=== PATIENT | male | born 1970 | race Caucasian/White ===

== ENCOUNTER 2021-03-09 11:14 | Inpatient (IN) | payer OTHER ==
[2021-03-09 11:49] VITALS: BMI 28.7
[2021-03-09] MEDS ORDERED: ONDANSETRON *ODT* 4 MG TABLET SL PRN (12:15)
[2021-03-09] MEDS ORDERED: METHOCARBAMOL 500 MG TABLET PO PRN (12:15)
[2021-03-09] MEDS ORDERED: MENTHOL/PHENOL 1 EACH UD MM PRN (12:15)
[2021-03-09] MEDS ORDERED: NICOTINE POLACRILEX 2 MG GUM BUC PRN (12:15)
[2021-03-09] MEDS ORDERED: BISMUTH SUBSALICYLATE 262 MG/15 ML BTL PO PRN (12:15)
[2021-03-09] MEDS ORDERED: MAGNESIUM CITRATE 300 ML BOTTLE PO PRN (12:15)
[2021-03-09] MEDS ORDERED: chlordiazePOXIDE HCL 25 MG CAPSULE PO PRN (12:15)
[2021-03-09] MEDS ORDERED: MAGNESIUM HYDROX 2400MG/30ML ORAL SUSPENSION 30 ML CUP PO PRN (12:15)
[2021-03-09] MEDS ORDERED: ACETAMINOPHEN 325 MG TABLET (FP) PO PRN ×2 (12:15)
[2021-03-09] MEDS ORDERED: chlordiazePOXIDE HCL 25 MG CAPSULE ONE (12:21)
[2021-03-09] MEDS: chlordiazePOXIDE HCL 25 MG CAPSULE PO SCH ×3 (12:28→22:57)
[2021-03-09 14:26] LABS: HEMATOCRIT 47.8 % (35.4-49); HEMOGLOBIN 16.3 GM/dL (11.7-16.9); MCH 30.5 pg (25.7-33.7); MEAN CELL VOLUME 89.7 fl (80-96); MEAN PLT VOLUME 7.5 fl (7.5-11.1); PLATELET COUNT 247 K/MM3 (134-434); RBC 5.33 M/mm3 (4.00-5.60); RDW 13.2 % (11.9-15.9); WHITE BLOOD COUNT 7.7 K/mm3 (4.0-10.0)
[2021-03-09] MEDS: hydrOXYzine PAMOATE 25 MG CAPSULE (FP) PO SCH ×3 (14:43→22:57)
[2021-03-09] MEDS: PRENATAL VITAMINS W/ FOLIC ACID TABLET (FP) PO SCH (14:44)
[2021-03-09 14:47] LABS: CALCIUM 9.2 mg/dL (8.5-10.1)
[2021-03-09 14:48] LABS: ALBUMIN 4.4 g/dl (3.4-5.0); BLOOD UREA NITROGEN 7.9 mg/dL (7-18)
[2021-03-09 14:51] LABS: CREATININE 0.8 mg/dL (0.55-1.3)
[2021-03-09 14:54] LABS: BILIRUBIN,TOTAL 0.4 mg/dL (0.2-1); TOT PROT 8.1 g/dl (6.4-8.2)
[2021-03-09] MEDS: MAG HYDROX/AL HYDROX/SIMETH 30 ML UNIT-DOSE CUP PO PRN (18:13)
[2021-03-09] MEDS: MELATONIN 5 MG TABLETS PO SCH (22:57)
[2021-03-09] MEDS: THIAMINE HCL 100 MG TABLET (FP) PO SCH (22:57)
[2021-03-10] MEDS: chlordiazePOXIDE HCL 25 MG CAPSULE PO SCH ×4 (06:30→23:13)
[2021-03-10] MEDS: hydrOXYzine PAMOATE 25 MG CAPSULE (FP) PO SCH ×5 (06:30→23:13)
[2021-03-10] MEDS: PRENATAL VITAMINS W/ FOLIC ACID TABLET (FP) PO SCH (10:57)
[2021-03-10] MEDS: ATOMOXETINE HCL 25 MG CAPSULE PO SCH (15:09)
[2021-03-10] MEDS: FLUoxetine HCL 20 MG CAPSULE PO SCH (15:09)
[2021-03-10] MEDS: MELATONIN 5 MG TABLETS PO SCH (23:12)
[2021-03-10] MEDS: THIAMINE HCL 100 MG TABLET (FP) PO SCH (23:12)
[2021-03-10] MEDS: MAG HYDROX/AL HYDROX/SIMETH 30 ML UNIT-DOSE CUP PO PRN (23:17)
[2021-03-11] MEDS ORDERED: chlordiazePOXIDE HCL 25 MG CAPSULE PO SCH (05:00)
[2021-03-11] MEDS: hydrOXYzine PAMOATE 25 MG CAPSULE (FP) PO SCH ×5 (06:43→22:02)
[2021-03-11] MEDS ORDERED: chlordiazePOXIDE 5 MG CAPSULE ONE ×3 (09:44→21:17)
[2021-03-11] MEDS ORDERED: chlordiazePOXIDE HCL 10 MG CAPSULE ONE ×3 (09:44→21:16)
[2021-03-11] MEDS: PRENATAL VITAMINS W/ FOLIC ACID TABLET (FP) PO SCH (10:34)
[2021-03-11] MEDS: FLUoxetine HCL 20 MG CAPSULE PO SCH (10:34)
[2021-03-11] MEDS: CHLORDIAZEPOXIDE 20 MG, CHLORDIAZEPOXIDE 5 MG PO SCH ×3 (10:35→22:00)
[2021-03-11] MEDS: ATOMOXETINE HCL 25 MG CAPSULE PO SCH (10:35)
[2021-03-11] MEDS: OXYBUTYNIN CHLORIDE 5 MG TABLET PO SCH (12:04)
[2021-03-11] MEDS: HYDROCORTISONE 1% TOPICAL CREAM 30 GM TUBE TP SCH ×2 (15:00→22:04)
[2021-03-11] MEDS: MELATONIN 5 MG TABLETS PO SCH (22:01)
[2021-03-11] MEDS: THIAMINE HCL 100 MG TABLET (FP) PO SCH (22:02)
[2021-03-12] MEDS ORDERED: chlordiazePOXIDE HCL 10 MG CAPSULE PO PRN
[2021-03-12] MEDS: MAG HYDROX/AL HYDROX/SIMETH 30 ML UNIT-DOSE CUP PO PRN (00:30)
[2021-03-12] MEDS: hydrOXYzine PAMOATE 25 MG CAPSULE (FP) PO SCH ×5 (07:36→22:11)
[2021-03-12] MEDS: chlordiazePOXIDE HCL 10 MG CAPSULE PO SCH ×4 (07:36→22:11)
[2021-03-12] MEDS: PRENATAL VITAMINS W/ FOLIC ACID TABLET (FP) PO SCH (10:27)
[2021-03-12] MEDS: FLUoxetine HCL 20 MG CAPSULE PO SCH (10:27)
[2021-03-12] MEDS: OXYBUTYNIN CHLORIDE 5 MG TABLET PO SCH (10:27)
[2021-03-12] MEDS: ATOMOXETINE HCL 25 MG CAPSULE PO SCH (10:29)
[2021-03-12] MEDS: IBUPROFEN 400 MG TABLET (FP) PO PRN ×2 (12:05→20:08)
[2021-03-12] MEDS: HYDROCORTISONE 1% TOPICAL CREAM 30 GM TUBE TP SCH ×2 (15:26→22:12)
[2021-03-12] MEDS: THIAMINE HCL 100 MG TABLET (FP) PO SCH (22:11)
[2021-03-12] MEDS: MELATONIN 5 MG TABLETS PO SCH (22:11)
[2021-03-13] MEDS: MAG HYDROX/AL HYDROX/SIMETH 30 ML UNIT-DOSE CUP PO PRN ×2 (02:27→22:24)
[2021-03-13] MEDS: chlordiazePOXIDE HCL 10 MG CAPSULE PO SCH ×2 (05:27→18:13)
[2021-03-13] MEDS: hydrOXYzine PAMOATE 25 MG CAPSULE (FP) PO SCH ×5 (05:27→22:24)
[2021-03-13] MEDS: ATOMOXETINE HCL 25 MG CAPSULE PO SCH (09:12)
[2021-03-13] MEDS: FLUoxetine HCL 20 MG CAPSULE PO SCH (09:12)
[2021-03-13] MEDS: PRENATAL VITAMINS W/ FOLIC ACID TABLET (FP) PO SCH (09:12)
[2021-03-13] MEDS: OXYBUTYNIN CHLORIDE 5 MG TABLET PO SCH (09:12)
[2021-03-13] MEDS: HYDROCORTISONE 1% TOPICAL CREAM 30 GM TUBE TP SCH ×2 (09:13→22:35)
[2021-03-13] MEDS ORDERED: OXYBUTYNIN CHLORIDE 5 MG TABLET PO SCH (11:45)
[2021-03-13] MEDS: THIAMINE HCL 100 MG TABLET (FP) PO SCH (22:24)
[2021-03-13] MEDS: MELATONIN 5 MG TABLETS PO SCH (22:24)
[2021-03-14] MEDS ORDERED: chlordiazePOXIDE HCL 10 MG CAPSULE PO ONE (05:00)
[2021-03-14] MEDS: hydrOXYzine PAMOATE 25 MG CAPSULE (FP) PO SCH ×2 (05:49→10:25)
[2021-03-14 09:11] VITALS: BP 124/88; PULSE 84; TEMP 97.5
[2021-03-14] MEDS ORDERED: OXYBUTYNIN CHLORIDE 5 MG TABLET PO SCH (10:00)
[2021-03-14] MEDS: FLUoxetine HCL 20 MG CAPSULE PO SCH (10:25)
[2021-03-14] MEDS: HYDROCORTISONE 1% TOPICAL CREAM 30 GM TUBE TP SCH (10:25)
[2021-03-14] MEDS: PRENATAL VITAMINS W/ FOLIC ACID TABLET (FP) PO SCH (10:25)
[2021-03-14] MEDS: ATOMOXETINE HCL 25 MG CAPSULE PO SCH (10:25)
== END 2021-03-14 11:19 | disposition other institution (70) | DRG 774 ==
LOC: YASAS 11:14 → Y3N 13:05
PROVIDERS: ADMIT Allergy & Immunology; ATTEND Allergy & Immunology
PROC: HZ2ZZZZ Detoxification Services for Substance Abuse Treatment (ICD-10-PCS; principal; 2021-03-09)
DX: F10.230 Alcohol dependence with withdrawal, uncomplicated (principal); F14.20 Cocaine dependence, uncomplicated; F17.210 Nicotine dependence, cigarettes, uncomplicated; F31.9 Bipolar disorder, unspecified; F19.24 Other psychoactive substance dependence with psychoactive substance-induced mood disorder; F39 Unspecified mood [affective] disorder; F60.9 Personality disorder, unspecified; F41.9 Anxiety disorder, unspecified; F90.9 Attention-deficit hyperactivity disorder, unspecified type; F43.10 Post-traumatic stress disorder, unspecified; I10 Essential (primary) hypertension; L30.9 Dermatitis, unspecified; M19.90 Unspecified osteoarthritis, unspecified site; N32.81 Overactive bladder; N39.43 Post-void dribbling; Z62.810 Personal history of physical and sexual abuse in childhood
CPT/HCPCS: 36415; 80053; 85027; 86780; 93005; 93010; C9803; U0003; U0005

== ENCOUNTER 2021-03-14 11:09 | Inpatient (IN) | payer OTHER ==
[2021-03-14] MEDS ORDERED: LOPERAMIDE HCL 2 MG CAPSULE PO PRN (13:07)
[2021-03-14] MEDS ORDERED: guaiFENesin 200 MG/10 ML 10 ML UNIT-DOSE CUPS PO PRN (13:07)
[2021-03-14] MEDS ORDERED: NICOTINE POLACRILEX 2 MG GUM BUC PRN (13:07)
[2021-03-14] MEDS ORDERED: ACETAMINOPHEN 325 MG TABLET (FP) PO PRN (13:07)
[2021-03-14] MEDS ORDERED: MAGNESIUM CITRATE 300 ML BOTTLE PO PRN (13:07)
[2021-03-14] MEDS ORDERED: P-EPHED 60MG/TRIPROLIDI 2.5MG TABLET PO PRN (13:07)
[2021-03-14] MEDS ORDERED: MAGNESIUM HYDROX 2400MG/30ML ORAL SUSPENSION 30 ML CUP PO PRN (13:07)
[2021-03-14] MEDS ORDERED: MENTHOL/PHENOL 1 EACH UD MM PRN (13:07)
[2021-03-14] MEDS ORDERED: hydrOXYzine PAMOATE 25 MG CAPSULE (FP) PO PRN (13:07)
[2021-03-14] MEDS: IBUPROFEN 400 MG TABLET (FP) PO PRN (13:41)
[2021-03-14] MEDS ORDERED: OXYBUTYNIN CHLORIDE 5 MG TABLET PO SCH (14:00)
[2021-03-14] MEDS: METHOCARBAMOL 500 MG TABLET PO SCH ×3 (14:53→21:44)
[2021-03-14] MEDS: KETOCONAZOLE 2% CREAM - 60GM TUBE TP SCH (14:53)
[2021-03-14] MEDS ORDERED: PT OWN MED DRAWER 7, Y5N ONE (15:00)
[2021-03-14] MEDS: MAG HYDROX/AL HYDROX/SIMETH 30 ML UNIT-DOSE CUP PO PRN (21:43)
[2021-03-14] MEDS: MELATONIN 5 MG TABLETS PO SCH (21:44)
[2021-03-14] MEDS: OXYBUTYNIN CHLORIDE 5 MG TABLET PO SCH (21:44)
[2021-03-14] MEDS: THIAMINE HCL 100 MG TABLET (FP) PO SCH (21:45)
[2021-03-15] MEDS: NICOTINE 7 MG/24 HOURS TOPICAL PATCH TD SCH (09:57)
[2021-03-15] MEDS: METHOCARBAMOL 500 MG TABLET PO SCH ×4 (09:58→21:25)
[2021-03-15] MEDS: FLUoxetine HCL 20 MG CAPSULE PO SCH (09:58)
[2021-03-15] MEDS: LISINOPRIL 5 MG TABLET PO SCH (09:58)
[2021-03-15] MEDS ORDERED: ATOMOXETINE HCL 25 MG CAPSULE PO SCH (10:00)
[2021-03-15] MEDS: FOLIC ACID 1 MG TABLET (FP) PO SCH (10:00)
[2021-03-15] MEDS: PRENATAL VITAMINS W/ FOLIC ACID TABLET (FP) PO SCH (10:00)
[2021-03-15] MEDS: OXYBUTYNIN CHLORIDE 5 MG TABLET PO SCH ×2 (10:00→21:24)
[2021-03-15] MEDS: KETOCONAZOLE 2% CREAM - 60GM TUBE TP SCH (10:03)
[2021-03-15 10:59] LABS: HIV INTERPRETATION NEGATIVE (NEGATIVE)
[2021-03-15] MEDS ORDERED: PT OWN MED DRAWER 7, Y5N ONE ×2 (11:05→13:50)
[2021-03-15] MEDS: THIAMINE HCL 100 MG TABLET (FP) PO SCH (21:24)
[2021-03-15] MEDS: MELATONIN 5 MG TABLETS PO SCH (21:24)
[2021-03-16] MEDS: MAG HYDROX/AL HYDROX/SIMETH 30 ML UNIT-DOSE CUP PO PRN ×3 (03:07→23:28)
[2021-03-16] MEDS: METHOCARBAMOL 500 MG TABLET PO SCH ×4 (09:59→21:35)
[2021-03-16] MEDS: ATOMOXETINE HCL 40 MG CAPSULE PO SCH (09:59)
[2021-03-16] MEDS: FOLIC ACID 1 MG TABLET (FP) PO SCH (09:59)
[2021-03-16] MEDS: FLUoxetine HCL 20 MG CAPSULE PO SCH (09:59)
[2021-03-16] MEDS: PRENATAL VITAMINS W/ FOLIC ACID TABLET (FP) PO SCH (09:59)
[2021-03-16] MEDS: LISINOPRIL 5 MG TABLET PO SCH (09:59)
[2021-03-16] MEDS: KETOCONAZOLE 2% CREAM - 60GM TUBE TP SCH (10:00)
[2021-03-16] MEDS: NICOTINE 7 MG/24 HOURS TOPICAL PATCH TD SCH (10:00)
[2021-03-16] MEDS: OXYBUTYNIN CHLORIDE 5 MG TABLET PO SCH ×2 (10:01→21:35)
[2021-03-16] MEDS: MELATONIN 5 MG TABLETS PO SCH (21:34)
[2021-03-16] MEDS: THIAMINE HCL 100 MG TABLET (FP) PO SCH (21:34)
[2021-03-17] MEDS: METHOCARBAMOL 500 MG TABLET PO SCH ×4 (09:46→21:18)
[2021-03-17] MEDS: PRENATAL VITAMINS W/ FOLIC ACID TABLET (FP) PO SCH (09:46)
[2021-03-17] MEDS: LISINOPRIL 5 MG TABLET PO SCH (09:46)
[2021-03-17] MEDS: KETOCONAZOLE 2% CREAM - 60GM TUBE TP SCH (09:46)
[2021-03-17] MEDS: OXYBUTYNIN CHLORIDE 5 MG TABLET PO SCH ×2 (09:47→21:17)
[2021-03-17] MEDS: NICOTINE 7 MG/24 HOURS TOPICAL PATCH TD SCH (09:47)
[2021-03-17] MEDS: FOLIC ACID 1 MG TABLET (FP) PO SCH (09:47)
[2021-03-17] MEDS: FLUoxetine HCL 20 MG CAPSULE PO SCH (09:47)
[2021-03-17] MEDS: ATOMOXETINE HCL 40 MG CAPSULE PO SCH (09:47)
[2021-03-17] MEDS: IBUPROFEN 400 MG TABLET (FP) PO PRN (12:35)
[2021-03-17] MEDS: MELATONIN 5 MG TABLETS PO SCH (21:18)
[2021-03-17] MEDS: MAG HYDROX/AL HYDROX/SIMETH 30 ML UNIT-DOSE CUP PO PRN (21:18)
[2021-03-17] MEDS: THIAMINE HCL 100 MG TABLET (FP) PO SCH (21:18)
[2021-03-18] MEDS: PRENATAL VITAMINS W/ FOLIC ACID TABLET (FP) PO SCH (09:37)
[2021-03-18] MEDS: ATOMOXETINE HCL 40 MG CAPSULE PO SCH (09:37)
[2021-03-18] MEDS: FLUoxetine HCL 20 MG CAPSULE PO SCH (09:37)
[2021-03-18] MEDS: OXYBUTYNIN CHLORIDE 5 MG TABLET PO SCH ×2 (09:37→21:31)
[2021-03-18] MEDS: IBUPROFEN 400 MG TABLET (FP) PO PRN ×2 (09:37→17:40)
[2021-03-18] MEDS: LISINOPRIL 5 MG TABLET PO SCH (09:37)
[2021-03-18] MEDS: METHOCARBAMOL 500 MG TABLET PO SCH ×4 (09:38→21:31)
[2021-03-18] MEDS: FOLIC ACID 1 MG TABLET (FP) PO SCH (09:38)
[2021-03-18] MEDS: KETOCONAZOLE 2% CREAM - 60GM TUBE TP SCH (09:39)
[2021-03-18] MEDS: NICOTINE 7 MG/24 HOURS TOPICAL PATCH TD SCH (09:39)
[2021-03-18] MEDS ORDERED: MASKS NR ONE (12:44)
[2021-03-18 14:07] LABS: SARS-CoV-2 NAA Not Detected (Not Detected)
[2021-03-18] MEDS: THIAMINE HCL 100 MG TABLET (FP) PO SCH (21:31)
[2021-03-18] MEDS: MELATONIN 5 MG TABLETS PO SCH (21:31)
[2021-03-18] MEDS: MAG HYDROX/AL HYDROX/SIMETH 30 ML UNIT-DOSE CUP PO PRN (21:32)
[2021-03-19] MEDS: PRENATAL VITAMINS W/ FOLIC ACID TABLET (FP) PO SCH (10:13)
[2021-03-19] MEDS: METHOCARBAMOL 500 MG TABLET PO SCH ×4 (10:13→21:14)
[2021-03-19] MEDS: FLUoxetine HCL 20 MG CAPSULE PO SCH (10:13)
[2021-03-19] MEDS: KETOCONAZOLE 2% CREAM - 60GM TUBE TP SCH (10:14)
[2021-03-19] MEDS: NICOTINE 7 MG/24 HOURS TOPICAL PATCH TD SCH (10:14)
[2021-03-19] MEDS: LISINOPRIL 5 MG TABLET PO SCH (10:14)
[2021-03-19] MEDS: OXYBUTYNIN CHLORIDE 5 MG TABLET PO SCH ×2 (10:14→21:14)
[2021-03-19] MEDS: FOLIC ACID 1 MG TABLET (FP) PO SCH (10:14)
[2021-03-19] MEDS: ATOMOXETINE HCL 40 MG CAPSULE PO SCH (10:16)
[2021-03-19] MEDS: MAG HYDROX/AL HYDROX/SIMETH 30 ML UNIT-DOSE CUP PO PRN ×2 (15:38→21:15)
[2021-03-19] MEDS: THIAMINE HCL 100 MG TABLET (FP) PO SCH (21:14)
[2021-03-19] MEDS: MELATONIN 5 MG TABLETS PO SCH (21:14)
[2021-03-19] MEDS: IBUPROFEN 400 MG TABLET (FP) PO PRN (21:15)
[2021-03-20 06:49] VITALS: TEMP 97.1
[2021-03-20 09:25] VITALS: BP 105/74; PULSE 106
[2021-03-20] MEDS: KETOCONAZOLE 2% CREAM - 60GM TUBE TP SCH (10:23)
[2021-03-20] MEDS: PRENATAL VITAMINS W/ FOLIC ACID TABLET (FP) PO SCH (10:23)
[2021-03-20] MEDS: LISINOPRIL 5 MG TABLET PO SCH (10:23)
[2021-03-20] MEDS: NICOTINE 7 MG/24 HOURS TOPICAL PATCH TD SCH (10:23)
[2021-03-20] MEDS: OXYBUTYNIN CHLORIDE 5 MG TABLET PO SCH (10:23)
[2021-03-20] MEDS: ATOMOXETINE HCL 40 MG CAPSULE PO SCH (10:23)
[2021-03-20] MEDS: METHOCARBAMOL 500 MG TABLET PO SCH (10:23)
[2021-03-20] MEDS: FLUoxetine HCL 20 MG CAPSULE PO SCH (10:24)
[2021-03-20] MEDS: FOLIC ACID 1 MG TABLET (FP) PO SCH (10:24)
== END 2021-03-20 10:47 | disposition home or self-care (01) | DRG 772 ==
LOC: YASAS 11:09 → Y3W 11:12
PROVIDERS: ADMIT Allergy & Immunology; ATTEND Allergy & Immunology
PROC: HZ42ZZZ Group Counseling for Substance Abuse Treatment, Cognitive-Behavioral (ICD-10-PCS; principal; 2021-03-14)
DX: F10.20 Alcohol dependence, uncomplicated (principal); F14.20 Cocaine dependence, uncomplicated; F12.20 Cannabis dependence, uncomplicated; F17.210 Nicotine dependence, cigarettes, uncomplicated; F19.24 Other psychoactive substance dependence with psychoactive substance-induced mood disorder; F31.9 Bipolar disorder, unspecified; F39 Unspecified mood [affective] disorder; F41.9 Anxiety disorder, unspecified; F60.9 Personality disorder, unspecified; F43.10 Post-traumatic stress disorder, unspecified; F90.9 Attention-deficit hyperactivity disorder, unspecified type; I10 Essential (primary) hypertension; M19.90 Unspecified osteoarthritis, unspecified site; N32.81 Overactive bladder; N39.43 Post-void dribbling; Z62.810 Personal history of physical and sexual abuse in childhood
CPT/HCPCS: 36415; 87389; C9803; U0003; U0005

== ENCOUNTER 2022-02-08 15:25 | Inpatient (IN) | payer OTHER ==
[2022-02-08] MEDS ORDERED: LOPERAMIDE HCL 2 MG CAPSULE PO PRN (16:36)
[2022-02-08] MEDS ORDERED: BISMUTH SUBSALICYLATE 524 MG/30 ML PO PRN (16:36)
[2022-02-08] MEDS ORDERED: MAGNESIUM CITRATE 300 ML BOTTLE PO PRN (16:36)
[2022-02-08] MEDS ORDERED: ONDANSETRON *ODT* 4 MG TABLET SL PRN (16:36)
[2022-02-08] MEDS ORDERED: MAGNESIUM HYDROX 2400MG/30ML ORAL SUSPENSION 30 ML CUP PO PRN (16:36)
[2022-02-08] MEDS ORDERED: chlordiazePOXIDE HCL 25 MG CAPSULE PO PRN (16:36)
[2022-02-08] MEDS ORDERED: ACETAMINOPHEN 325 MG TABLET (FP) PO PRN ×2 (16:36)
[2022-02-08] MEDS ORDERED: BENZOCAINE/MENTHOL (CHLORASEPTIC ) LOZENGE MM PRN (16:36)
[2022-02-08] MEDS ORDERED: DICYCLOMINE HCL 10 MG CAPSULE PO PRN (16:36)
[2022-02-08] MEDS ORDERED: MAG HYDROX/AL HYDROX/SIMETH 30 ML UNIT-DOSE CUP PO PRN (16:36)
[2022-02-08 17:20] VITALS: BMI 28.7
[2022-02-08] MEDS ORDERED: chlordiazePOXIDE HCL 25 MG CAPSULE ONE (20:39)
[2022-02-08] MEDS ORDERED: hydrOXYzine PAMOATE 25 MG CAPSULE (FP) PO ONE (20:39)
[2022-02-08] MEDS: hydrOXYzine PAMOATE 25 MG CAPSULE (FP) PO SCH ×2 (20:40→22:39)
[2022-02-08] MEDS ORDERED: IBUPROFEN 400 MG TABLET (FP) PO ONE (21:01)
[2022-02-08] MEDS: MELATONIN 5 MG TABLETS PO SCH (22:39)
[2022-02-08] MEDS: GABAPENTIN 300 MG CAPSULE PO SCH (22:39)
[2022-02-08] MEDS: chlordiazePOXIDE HCL 25 MG CAPSULE PO SCH (22:40)
[2022-02-08] MEDS: THIAMINE HCL 100 MG TABLET (FP) PO SCH (22:41)
[2022-02-08] MEDS: PRENATAL VITAMINS W/ FOLIC ACID TABLET (FP) PO SCH (22:43)
[2022-02-09] MEDS: chlordiazePOXIDE HCL 25 MG CAPSULE PO SCH ×4 (06:41→22:39)
[2022-02-09] MEDS: hydrOXYzine PAMOATE 25 MG CAPSULE (FP) PO SCH ×5 (06:41→23:09)
[2022-02-09] MEDS: GABAPENTIN 300 MG CAPSULE PO SCH ×3 (06:41→22:39)
[2022-02-09] MEDS ORDERED: FLUoxetine HCL 20 MG CAPSULE PO ONE (10:53)
[2022-02-09] MEDS: PRENATAL VITAMINS W/ FOLIC ACID TABLET (FP) PO SCH (10:53)
[2022-02-09] MEDS ORDERED: DIVALPROEX SODIUM 250 MG TABLET E.C. PO ONE (10:53)
[2022-02-09] MEDS: SOLIFENACIN SUCCINATE 5 MG TAB PO SCH (10:54)
[2022-02-09] MEDS: LISINOPRIL 5 MG TABLET PO SCH (10:54)
[2022-02-09] MEDS: KETOCONAZOLE 2% TOPICAL CREAM 15 GM TUBE TP SCH (10:57)
[2022-02-09 11:53] LABS: HEMATOCRIT 42.8 % (35.4-49); HEMOGLOBIN 14.4 GM/dL (11.7-16.9); MCH 29.6 pg (25.7-33.7); MCHC 33.6 g/dl (32.0-35.9); MEAN CELL VOLUME 88.2 fl (80-96); MEAN PLT VOLUME 7.7 fl (7.5-11.1); PLATELET COUNT 188 10^3/uL (134-434); RBC 4.86 M/mm3 (4.00-5.60); RDW 13.5 % (11.9-15.9); WHITE BLOOD COUNT 6.2 K/mm3 (4.0-10.0)
[2022-02-09 12:10] LABS: CALCIUM 8.7 mg/dL (8.5-10.1)
[2022-02-09 12:11] LABS: ALBUMIN 3.6 g/dl (3.4-5.0); BLOOD UREA NITROGEN 10.4 mg/dL (7-18)
[2022-02-09 12:13] LABS: CREATININE 0.7 mg/dL (0.55-1.3)
[2022-02-09 12:15] LABS: TOT PROT 6.7 g/dl (6.4-8.2)
[2022-02-09] MEDS: IBUPROFEN 400 MG TABLET (FP) PO PRN ×2 (15:48→22:42)
[2022-02-09] MEDS: THIAMINE HCL 100 MG TABLET (FP) PO SCH (22:39)
[2022-02-09] MEDS: DIVALPROEX SODIUM 250 MG TABLET E.C. PO SCH (22:39)
[2022-02-09] MEDS: MELATONIN 5 MG TABLETS PO SCH (22:41)
[2022-02-10] MEDS: hydrOXYzine PAMOATE 25 MG CAPSULE (FP) PO SCH ×5 (06:20→22:14)
[2022-02-10] MEDS: GABAPENTIN 300 MG CAPSULE PO SCH ×3 (06:20→22:11)
[2022-02-10] MEDS: chlordiazePOXIDE HCL 25 MG CAPSULE PO SCH ×4 (06:21→22:12)
[2022-02-10] MEDS: DIVALPROEX SODIUM 250 MG TABLET E.C. PO SCH ×2 (10:20→22:12)
[2022-02-10] MEDS: METHOCARBAMOL 500 MG TABLET PO PRN ×2 (10:20→17:29)
[2022-02-10] MEDS: PRENATAL VITAMINS W/ FOLIC ACID TABLET (FP) PO SCH (10:20)
[2022-02-10] MEDS: LISINOPRIL 5 MG TABLET PO SCH (10:20)
[2022-02-10] MEDS: FLUoxetine HCL 20 MG CAPSULE PO SCH (10:20)
[2022-02-10] MEDS: KETOCONAZOLE 2% TOPICAL CREAM 15 GM TUBE TP SCH (10:21)
[2022-02-10] MEDS: SOLIFENACIN SUCCINATE 5 MG TAB PO SCH (10:22)
[2022-02-10] MEDS: IBUPROFEN 400 MG TABLET (FP) PO PRN ×2 (10:24→17:28)
[2022-02-10 14:06] LABS: SARS-CoV-2 NAA Not Detected (Not Detected)
[2022-02-10] MEDS: THIAMINE HCL 100 MG TABLET (FP) PO SCH (22:11)
[2022-02-10] MEDS: MELATONIN 5 MG TABLETS PO SCH (22:12)
[2022-02-11] MEDS ORDERED: chlordiazePOXIDE HCL 10 MG CAPSULE PO PRN
[2022-02-11] MEDS: GABAPENTIN 300 MG CAPSULE PO SCH ×3 (05:31→22:43)
[2022-02-11] MEDS: hydrOXYzine PAMOATE 25 MG CAPSULE (FP) PO SCH ×5 (05:31→22:44)
[2022-02-11] MEDS: chlordiazePOXIDE HCL 10 MG CAPSULE PO SCH ×4 (05:31→22:43)
[2022-02-11] MEDS: DIVALPROEX SODIUM 250 MG TABLET E.C. PO SCH ×2 (10:35→22:43)
[2022-02-11] MEDS: SOLIFENACIN SUCCINATE 5 MG TAB PO SCH (10:35)
[2022-02-11] MEDS: LISINOPRIL 5 MG TABLET PO SCH (10:35)
[2022-02-11] MEDS: KETOCONAZOLE 2% TOPICAL CREAM 15 GM TUBE TP SCH (10:35)
[2022-02-11] MEDS: FLUoxetine HCL 20 MG CAPSULE PO SCH (10:35)
[2022-02-11] MEDS: PRENATAL VITAMINS W/ FOLIC ACID TABLET (FP) PO SCH (10:36)
[2022-02-11] MEDS: IBUPROFEN 400 MG TABLET (FP) PO PRN ×2 (10:41→22:46)
[2022-02-11] MEDS: THIAMINE HCL 100 MG TABLET (FP) PO SCH (22:43)
[2022-02-11] MEDS: METHOCARBAMOL 500 MG TABLET PO PRN (22:46)
[2022-02-11] MEDS: MELATONIN 5 MG TABLETS PO SCH (22:47)
[2022-02-12] MEDS: GABAPENTIN 300 MG CAPSULE PO SCH ×3 (05:43→23:07)
[2022-02-12] MEDS: chlordiazePOXIDE HCL 10 MG CAPSULE PO SCH ×2 (05:43→18:54)
[2022-02-12] MEDS: hydrOXYzine PAMOATE 25 MG CAPSULE (FP) PO SCH ×5 (05:43→23:07)
[2022-02-12] MEDS: FLUoxetine HCL 20 MG CAPSULE PO SCH (10:31)
[2022-02-12] MEDS: DIVALPROEX SODIUM 250 MG TABLET E.C. PO SCH ×2 (10:31→23:07)
[2022-02-12] MEDS: PRENATAL VITAMINS W/ FOLIC ACID TABLET (FP) PO SCH (10:31)
[2022-02-12] MEDS: LISINOPRIL 5 MG TABLET PO SCH (10:31)
[2022-02-12] MEDS: SOLIFENACIN SUCCINATE 5 MG TAB PO SCH (10:32)
[2022-02-12] MEDS: KETOCONAZOLE 2% TOPICAL CREAM 15 GM TUBE TP SCH (10:34)
[2022-02-12] MEDS: METHOCARBAMOL 500 MG TABLET PO PRN (15:02)
[2022-02-12] MEDS: IBUPROFEN 400 MG TABLET (FP) PO PRN (18:55)
[2022-02-12] MEDS: THIAMINE HCL 100 MG TABLET (FP) PO SCH (23:07)
[2022-02-12] MEDS: MELATONIN 5 MG TABLETS PO SCH (23:07)
[2022-02-13] MEDS ORDERED: chlordiazePOXIDE HCL 10 MG CAPSULE PO ONE (05:00)
[2022-02-13] MEDS: hydrOXYzine PAMOATE 25 MG CAPSULE (FP) PO SCH ×2 (06:13→10:39)
[2022-02-13] MEDS: GABAPENTIN 300 MG CAPSULE PO SCH (06:13)
[2022-02-13] MEDS: PRENATAL VITAMINS W/ FOLIC ACID TABLET (FP) PO SCH (09:06)
[2022-02-13] MEDS: FLUoxetine HCL 20 MG CAPSULE PO SCH (09:07)
[2022-02-13] MEDS: DIVALPROEX SODIUM 250 MG TABLET E.C. PO SCH (09:07)
[2022-02-13] MEDS: LISINOPRIL 5 MG TABLET PO SCH (09:07)
[2022-02-13] MEDS: SOLIFENACIN SUCCINATE 5 MG TAB PO SCH (09:08)
[2022-02-13 09:50] VITALS: BP 144/77; PULSE 86; TEMP 97
[2022-02-13] MEDS: KETOCONAZOLE 2% TOPICAL CREAM 15 GM TUBE TP SCH (10:39)
== END 2022-02-13 09:41 | disposition home or self-care (01) | DRG 775 ==
LOC: YASAS 15:25 → Y6N 20:53
PROVIDERS: ADMIT Allergy & Immunology; ATTEND Allergy & Immunology
PROC: HZ2ZZZZ Detoxification Services for Substance Abuse Treatment (ICD-10-PCS; principal; 2022-02-08)
DX: F10.230 Alcohol dependence with withdrawal, uncomplicated (principal); F12.20 Cannabis dependence, uncomplicated; F39 Unspecified mood [affective] disorder; F43.10 Post-traumatic stress disorder, unspecified; F19.280 Other psychoactive substance dependence with psychoactive substance-induced anxiety disorder; F41.9 Anxiety disorder, unspecified; F31.9 Bipolar disorder, unspecified; I10 Essential (primary) hypertension; R73.09 Other abnormal glucose; M19.90 Unspecified osteoarthritis, unspecified site; N32.81 Overactive bladder; N39.43 Post-void dribbling; Z87.891 Personal history of nicotine dependence; Z56.0 Unemployment, unspecified; Z59.00 Homelessness unspecified
CPT/HCPCS: 36415; 80053; 80164; 82962; 85027; 86780; C9803-CS; U0003; U0005

== ENCOUNTER 2022-03-31 17:35 | Inpatient (IN) | payer OTHER ==
[2022-03-31 18:18] VITALS: BMI 29.9
[2022-03-31] MEDS ORDERED: MAGNESIUM CITRATE 300 ML BOTTLE PO PRN (18:35)
[2022-03-31] MEDS ORDERED: MAG HYDROX/AL HYDROX/SIMETH 30 ML UNIT-DOSE CUP PO PRN (18:35)
[2022-03-31] MEDS ORDERED: ACETAMINOPHEN 325 MG TABLET (FP) PO PRN ×2 (18:35)
[2022-03-31] MEDS ORDERED: BISMUTH SUBSALICYLATE 524 MG/30 ML PO PRN (18:35)
[2022-03-31] MEDS ORDERED: ONDANSETRON *ODT* 4 MG TABLET SL PRN (18:35)
[2022-03-31] MEDS ORDERED: METHOCARBAMOL 500 MG TABLET PO PRN (18:35)
[2022-03-31] MEDS ORDERED: MAGNESIUM HYDROX 2400MG/30ML ORAL SUSPENSION 30 ML CUP PO PRN (18:35)
[2022-03-31] MEDS ORDERED: hydrOXYzine PAMOATE 25 MG CAPSULE (FP) PO PRN (18:35)
[2022-03-31] MEDS ORDERED: DICYCLOMINE HCL 10 MG CAPSULE PO PRN (18:35)
[2022-03-31] MEDS ORDERED: IBUPROFEN 400 MG TABLET (FP) PO PRN (18:35)
[2022-03-31] MEDS ORDERED: BENZOCAINE/MENTHOL (CHLORASEPTIC ) LOZENGE MM PRN (18:35)
[2022-03-31] MEDS ORDERED: IBUPROFEN 600 MG TABLET (FP) PO PRN (18:35)
[2022-03-31] MEDS ORDERED: chlordiazePOXIDE HCL 25 MG CAPSULE PO ONE (18:37)
[2022-03-31] MEDS ORDERED: chlordiazePOXIDE HCL 25 MG CAPSULE PO PRN (18:37)
[2022-03-31] MEDS: THIAMINE HCL 100 MG TABLET (FP) PO SCH (23:23)
[2022-03-31] MEDS: MELATONIN 5 MG TABLETS PO PRN (23:24)
[2022-03-31] MEDS: chlordiazePOXIDE HCL 25 MG CAPSULE PO SCH (23:28)
[2022-04-01] MEDS: chlordiazePOXIDE HCL 25 MG CAPSULE PO SCH ×4 (08:02→22:45)
[2022-04-01 10:13] LABS: HEMATOCRIT 39.8 % (35.4-49); HEMOGLOBIN 13.6 GM/dL (11.7-16.9); MCH 30.3 pg (25.7-33.7); MCHC 34.3 g/dl (32.0-35.9); MEAN CELL VOLUME 88.4 fl (80-96); MEAN PLT VOLUME 7.4 fl (7.5-11.1); PLATELET COUNT 197 10^3/uL (134-434); WHITE BLOOD COUNT 5.4 K/mm3 (4.0-10.0)
[2022-04-01] MEDS: LISINOPRIL 10 MG TABLET PO SCH (10:15)
[2022-04-01] MEDS: PRENATAL VITAMINS W/ FOLIC ACID TABLET (FP) PO SCH (10:15)
[2022-04-01 10:17] LABS: CALCIUM 8.4 mg/dL (8.5-10.1)
[2022-04-01 10:18] LABS: ALBUMIN 3.2 g/dl (3.4-5.0); BLOOD UREA NITROGEN 15.4 mg/dL (7-18)
[2022-04-01 10:20] LABS: CREATININE 0.7 mg/dL (0.55-1.3)
[2022-04-01 10:22] LABS: BILIRUBIN,TOTAL 0.4 mg/dL (0.2-1); TOT PROT 6.7 g/dl (6.4-8.2)
[2022-04-01 11:10] LABS: HIV INTERPRETATION NEGATIVE (NEGATIVE)
[2022-04-01] MEDS: OXYBUTYNIN CHLORIDE 5 MG TABLET PO SCH ×2 (11:56→22:46)
[2022-04-01] MEDS: MELATONIN 5 MG TABLETS PO PRN (22:46)
[2022-04-01] MEDS: THIAMINE HCL 100 MG TABLET (FP) PO SCH (22:46)
[2022-04-02] MEDS: chlordiazePOXIDE HCL 25 MG CAPSULE PO SCH ×4 (07:16→22:28)
[2022-04-02] MEDS: PRENATAL VITAMINS W/ FOLIC ACID TABLET (FP) PO SCH (10:37)
[2022-04-02] MEDS: OXYBUTYNIN CHLORIDE 5 MG TABLET PO SCH ×2 (10:37→22:27)
[2022-04-02] MEDS: LISINOPRIL 10 MG TABLET PO SCH (10:37)
[2022-04-02] MEDS ORDERED: GABAPENTIN 300 MG CAPSULE PO ONE (16:43)
[2022-04-02] MEDS ORDERED: FLUoxetine HCL 20 MG CAPSULE PO ONE (16:44)
[2022-04-02] MEDS: LOPERAMIDE HCL 2 MG CAPSULE PO PRN (19:32)
[2022-04-02] MEDS: THIAMINE HCL 100 MG TABLET (FP) PO SCH (22:27)
[2022-04-02] MEDS: DIVALPROEX SODIUM 500 MG TABLET E.C. PO SCH (22:27)
[2022-04-02] MEDS: GABAPENTIN 300 MG CAPSULE PO SCH (22:27)
[2022-04-02] MEDS: MELATONIN 5 MG TABLETS PO PRN (22:27)
[2022-04-03] MEDS ORDERED: chlordiazePOXIDE HCL 10 MG CAPSULE PO PRN
[2022-04-03] MEDS: LOPERAMIDE HCL 2 MG CAPSULE PO PRN (03:38)
[2022-04-03] MEDS: chlordiazePOXIDE HCL 10 MG CAPSULE PO SCH ×2 (06:28→10:18)
[2022-04-03] MEDS: GABAPENTIN 300 MG CAPSULE PO SCH (06:28)
[2022-04-03 09:24] VITALS: BP 101/68; PULSE 81; TEMP 98.1
[2022-04-03] MEDS ORDERED: FLUoxetine HCL 20 MG CAPSULE PO SCH (10:00)
[2022-04-03] MEDS: PRENATAL VITAMINS W/ FOLIC ACID TABLET (FP) PO SCH (10:14)
[2022-04-03] MEDS: DIVALPROEX SODIUM 500 MG TABLET E.C. PO SCH (10:14)
[2022-04-03] MEDS: OXYBUTYNIN CHLORIDE 5 MG TABLET PO SCH (10:14)
[2022-04-03] MEDS: LISINOPRIL 10 MG TABLET PO SCH (10:14)
[2022-04-04] MEDS ORDERED: chlordiazePOXIDE HCL 10 MG CAPSULE PO SCH (05:00)
[2022-04-05] MEDS ORDERED: chlordiazePOXIDE HCL 10 MG CAPSULE PO ONE (05:00)
== END 2022-04-03 10:30 | disposition left against medical advice (07) | DRG 770 ==
LOC: YASAS 17:35 → Y3N 21:26
PROVIDERS: ADMIT Allergy & Immunology; ATTEND Surgery
PROC: HZ2ZZZZ Detoxification Services for Substance Abuse Treatment (ICD-10-PCS; principal; 2022-03-31)
DX: F10.230 Alcohol dependence with withdrawal, uncomplicated (principal); F14.20 Cocaine dependence, uncomplicated; F12.20 Cannabis dependence, uncomplicated; F17.210 Nicotine dependence, cigarettes, uncomplicated; F90.9 Attention-deficit hyperactivity disorder, unspecified type; F31.9 Bipolar disorder, unspecified; F43.10 Post-traumatic stress disorder, unspecified; F19.24 Other psychoactive substance dependence with psychoactive substance-induced mood disorder; I10 Essential (primary) hypertension; N40.0 Benign prostatic hyperplasia without lower urinary tract symptoms; M17.11 Unilateral primary osteoarthritis, right knee; R00.0 Tachycardia, unspecified; Z91.19 Patient's noncompliance with other medical treatment and regimen; Z91.410 Personal history of adult physical and sexual abuse; Z56.0 Unemployment, unspecified; Z59.01 Sheltered homelessness
CPT/HCPCS: 36415; 80053; 80164; 82310; 85027; 86780; 87389; 87811; C9803-CS; U0003; U0005